=== PATIENT | female | born 1975 | race Caucasian/White ===

== ENCOUNTER → 2020-10-15 | Outpatient (CLI) | payer OTHER ==
[~2020-10-15] MED LIST: ALDACTONE 25MG25 MG PO; ANTIVERT 25MG T25 MG PO; BENZONATATE200 MG PO; CHANTIX1 MG PO; DULERA 200 MCG8.8 GM INH; FLEXERIL 10 MG10 MG PO; FOLIC ACID1 MG PO; GLUCOPHAGE1000 MG PO; HUMIRA40 MG/0.8 SQ; IBUPROFEN400 MG PO; JANUVIA100 MG PO; LIPITOR TAB 2020 MG PO; PROVENTIL HFA 61 INH INH; TANZEUM30 MG/0.5 SQ; TRAMADOL HCL50 MG PO; VENTOLIN/PROVE0.5 ML INH
== END ==
LOC: KOH-I 09:54
DX: N20.2 Calculus of kidney with calculus of ureter (principal); R91.8 Other nonspecific abnormal finding of lung field
CPT/HCPCS: 74176

== ENCOUNTER → 2020-12-14 | Outpatient (CLI) | payer OTHER | LOC: HEART CORB 11-30 10:00 | DX: R06.02 Shortness of breath (principal); I27.20 Pulmonary hypertension, unspecified; I07.1 Rheumatic tricuspid insufficiency; R93.1 Abnormal findings on diagnostic imaging of heart and coronary circulation; Z87.898 Personal history of other specified conditions; Z86.79 Personal history of other diseases of the circulatory system | CPT/HCPCS: 93306 ==

== ENCOUNTER → 2021-03-24 | Outpatient (CLI) | payer OTHER | LOC: CT 03-22 11:30 | DX: R91.8 Other nonspecific abnormal finding of lung field (principal) | CPT/HCPCS: 36415; 71260; 82565; Q9967 ==

== ENCOUNTER → 2021-04-02 | Outpatient (CLI) | payer OTHER ==
[2021-04-04 09:17] LABS: RHEUMATOID ARTHRITIS FACTOR 43.2 IU/mL (0.0-13.9)
[2021-04-05 13:13] LABS: ANGIOTENSIN-CONVERTING ENZYME 78 U/L (14-82)
== END ==
LOC: LAB 16:25
PROVIDERS: Ophthalmology
DX: M06.9 Rheumatoid arthritis, unspecified (principal)
CPT/HCPCS: 82164; 85652; 86038; 86140; 86431

== ENCOUNTER → 2021-04-16 | Outpatient (CLI) | payer OTHER | LOC: US 13:45 | DX: E28.2 Polycystic ovarian syndrome (principal) | CPT/HCPCS: 76830; 76856 ==

== ENCOUNTER 2021-05-06 21:12 | Emergency (ER) | payer OTHER ==
[2021-05-06 22:45] LABS: RED BLOOD COUNT 4.3 M/UL (4.00-5.10); WHITE BLOOD COUNT 10.1 K/UL (4.5-11.0)
[2021-05-06 23:47] LABS: BUN/CREATININE RATIO 18 (0-10)
== END 2021-05-07 01:05 | disposition home or self-care (01) ==
LOC: ER1 21:12
PROVIDERS: Family Medicine
DX: R53.1 Weakness (principal); R29.90 Unspecified symptoms and signs involving the nervous system
CPT/HCPCS: 36415; 70496; 80053; 80307; 82550; 82553; 82565; 83690; 84484; 84702; 85025; 99284; G0480; Q9967

== ENCOUNTER → 2021-05-06 | Outpatient (CLI) | payer OTHER | LOC: CT 13:59 | DX: R41.82 Altered mental status, unspecified (principal) | CPT/HCPCS: 36415; 70496; 82565; Q9967 ==

== ENCOUNTER → 2021-08-05 | Outpatient (CLI) | payer OTHER ==
[2021-08-05 15:26] LABS: HEMOGLOBIN 10.7 gm/dl (12.3-15.3); RED BLOOD COUNT 4.08 M/UL (4.00-5.10); WHITE BLOOD COUNT 9.3 K/UL (4.5-11.0)
[2021-08-05 15:45] LABS: BUN/CREATININE RATIO 16 (0-10)
== END ==
LOC: LAB 14:32
PROVIDERS: Internal Medicine Interventional Cardiology
DX: I20.9 Angina pectoris, unspecified (principal); I10 Essential (primary) hypertension; E11.9 Type 2 diabetes mellitus without complications; E78.5 Hyperlipidemia, unspecified; J44.9 Chronic obstructive pulmonary disease, unspecified; R94.31 Abnormal electrocardiogram [ECG] [EKG]; R94.39 Abnormal result of other cardiovascular function study; R07.2 Precordial pain; R07.89 Other chest pain; R06.02 Shortness of breath; M06.9 Rheumatoid arthritis, unspecified
CPT/HCPCS: 36415; 80048; 85025; 85610; 85730; 93005

== ENCOUNTER → 2021-08-16 | Outpatient (CLI) | payer OTHER ==
[~2021-08-16] MED LIST changes: +ACTOS15 MG PO; +ASPIRIN CHEWABL81 MG PO; +CELEBREX200 MG PO; +COZAAR25 MG PO; +CYMBALTA60 MG PO; +GLUCOPHAGE 500500 MG PO; -GLUCOPHAGE1000 MG PO; +ISOSORBIDE MONO30 MG PO; +LIPITOR20 MG PO; +OMEPRAZOLE20 M1 PO; +ORENCIA125 MG/1 M SQ; +PLAQUENIL 200200 MG PO; +PROVIGIL 200 M200 MG PO; +TOPROL XL25 MG PO; +TRULICITY3 MG/0.5 M SQ; +ZYRTEC10 MG PO
== END ==
LOC: CATH 08:05
DX: I25.118 Atherosclerotic heart disease of native coronary artery with other forms of angina pectoris (principal); U07.1 COVID-19; I10 Essential (primary) hypertension; E11.9 Type 2 diabetes mellitus without complications; J44.9 Chronic obstructive pulmonary disease, unspecified; E78.5 Hyperlipidemia, unspecified; E66.9 Obesity, unspecified; Z68.41 Body mass index [BMI] 40.0-44.9, adult; G47.33 Obstructive sleep apnea (adult) (pediatric); M06.9 Rheumatoid arthritis, unspecified; Z87.891 Personal history of nicotine dependence
CPT/HCPCS: 82962; 99152; 99153; C1769; C1887; C1894; J1644; J2250; J3010; J7030; Q9967; U0002